=== PATIENT | female | born 1965 | race African-American/Black ===

== ENCOUNTER → 2018-03-13 07:44 | Outpatient (CLI) | payer BC, SELFPAY ==
[2018-03-13 12:03] LABS: Cholesterol 238 mg/dL (200); Estradiol < 11.0 pg/mL; Follicle Stimulating Hormone 108.2 mIU/mL; Glucose 82 mg/dL (74-106); High Density Lipoprotein 70 mg/dL; Luteinizing Hormone 44.8 mIU/mL; Thyroid Stim Hormone (TSH) 0.94 uIU/mL (0.358-3.74); Triglycerides 56 mg/dL; Very Low Density Lipoprotein 11 mg/dL (5-40)
== END ==
LOC: LAB.FUTURE 07:48
PROVIDERS: Family Provider Family Medicine; PCP Family Medicine; Visit Provider Obstetrics & Gynecology Gynecology
DX: N95.0 Postmenopausal bleeding (principal); Z13.1 Encounter for screening for diabetes mellitus; Z13.220 Encounter for screening for lipoid disorders
CPT/HCPCS: 36415; 80061; 82670; 82947; 83001; 83002; 84443

== ENCOUNTER 2024-05-30 08:59 | Emergency (ER) | payer BC, SELFPAY ==
[2024-05-30 09:00] VITALS: BP 163/76; PULSE 65; RESP 18; TEMP 36.3; O2SAT 100; BMI 31.8
--- NOTE | 2024-05-30 09:30 | EDS_ITS ---
HPI History of Present Illness Chief Complaint: Eye Problem Narrative Narrative: 58-year-old female presenting with left-sided flank pain. She states the onset was about 2 weeks ago. She states it is sharp in nature and radiates around the anterior part of the abdomen. She has not had significant nausea or vomiting. Denies diarrhea but states she does not have good bowel movements. No fevers or chills. Patient also states about a month ago she had a fleeting episode of something in her left eye where her vision was blurred. This is resolved. She states that this morning she woke up with redness in her left eye. She not sure how it got there. She went to urgent care and they were concerned that the flank pain was somehow connected to the left eye. Patient does have a mild headache. [facility] Medical History High cholesterol Anxiety Depression Home Medications ?Medication ?Instructions ?Recorded ?Last Taken ?Type No Known/Unobtainable [No Known 08/06/16 Unknown History Home Medications] Allergy/AdvReac Type Severity Reaction Status Date / Time codeine Allergy Hives Verified 08/06/16 09:06 Social History Smoking Status: Unknown if ever smoked ROS ROS ED Constitutional Constitutional ED: Denies chills, fever(s) or sweats Eyes Eyes: Reports other Details: Redness of left eye ; Denies blurry vision or change in vision ENT ENT ED: Denies ear pain or sore throat Cardiovascular Cardiovascular: Denies chest pain, palpitations or racing heartbeat Respiratory/Chest Respiratory/Chest: Denies cough, dyspnea or sputum Gastrointestinal Gastrointestinal: Reports abdominal pain and constipation; Denies diarrhea, nausea or vomiting Genitourinary Genitourinary ED: Denies dysuria, hematuria or urinary frequency Musculoskeletal Musculoskeletal: Denies arthralgias, myalgias or neck pain Integumentary Denies abscess, Abrasions or rash Neurologic Neurologic: Denies headache(s), paresthesias or weakness Psychiatric Psychiatric: Denies anxiety, depression, suicidal ideation or suicidal thoughts Endocrine Endocrinology: Denies polydipsia or polyuria EXAM Physical Exam Const Vital Signs: 05/30/24 09:00 Temperature 97.4 F L Temperature Source Temporal Pulse Rate 65 Respiratory Rate 18 Blood Pressure 163/76 H Blood Pressure Mean 105 Pulse Ox 100 Oxygen Delivery Method Room Air Positive well nourished General Appearance ED: CHRISTIANE GEORGE Narrative: Left-sided subconjunctival hemorrhage at 4 o'clock position of the left eye atraumatic and trauma Neck no lymphadenopathy Resp normal respiratory effort and clear to auscultation bilaterally Cardio regular rate and regular rhythm Back/Spine Back/Spine Narrative: Tenderness to palpation left flank under left ribs. Neuro oriented x3 and CN's II-XII intact bilaterally Sensorium / Orientation: alert Motor Exam: strength 5/5 throughout MDM MDM MDM Narrative Medical decision making narrative: Patient presenting with subconjunctival hemorrhage. There is nothing else acute as far as her eye is concerned. She is having left flank pain for a couple of weeks. She describes it as sharp and radiating. Patient presenting with right flank pain. Differential includes colitis, diverticulitis, constipation, UTI, pyelonephritis, renal calculi, ureteral calculi, bowel obstruction, malignancy, dehydration, electrolyte abnormalities. Patient was given Toradol and Zofran. CBC will be obtained to assess white blood cell count, hemoglobin, platelets. BMP to assess renal function, electrolytes, glucose. Urinalysis to assess for UTI. CBC shows normal white blood cell count, hemoglobin, platelets. BMP shows creatinine 1.05. No other comparisons. Urinalysis negative for infection but does show occult blood. Patient is medicated with Toradol and Zofran. She felt some relief but then her pain came back. She was given a dose of morphine [address] of the abdomen pelvis was obtained and shows moderate stool burden with no other acute findings. I counseled her on these findings and she will be MiraLAX for the next 3 days. I counseled her that her subconjunctival hemorrhage will heal on its own. Return precautions are discussed. Impression: 1. Left flank pain 2. Constipation 3. Subconjunctival hemorrhage Lab Data Attestation: I reviewed the patient's lab results. Discharge Plan Triage Chief Complaint: Eye Problem Other Complaint: Back Headache ED Provider: Brian eLos Dx/Rx/DC Orders Instructions: ED Constipation (Adult), ED Flank Pain, Uncertain Cause, ED Subconjunctival Hemorrhage Prescriptions: No Action No Known Home Medications Primary Care Provider: Haider Ramirez Referrals: Haider Ramirez MD [Primary Care Provider] - Print Language: Hungarian Disposition Disposition: Home, Self Care
[2024-05-30] MEDS: Ondansetron 4 MG/2 ML Vial IV (09:46)
[2024-05-30] MEDS: Ketorolac 15 MG/ML Vial IV (09:46)
[2024-05-30 09:54] LABS: Bacteria 0 SEEN /hpf (None Seen); Mucous, Urine 0 SEEN /hpf (<or=2+); Red Blood Cells-Urine 0 SEEN /hpf (0-5); White Blood Cells 0 SEEN /hpf (0-5)
[2024-05-30 09:55] LABS: Absolute Lymphocyte Count 1.87 X10^3/uL (0.83-4.51); Basophil# 0.04 X10^3/uL; Basophil% 0.7 % (0-1); Eosinophils% 1.8 % (0-5); Hematocrit 39.8 % (37-47); Hemoglobin 12.7 g/dL (12.0-15.0); Lymphocyte # 1.87 X10^3/ul (0.83-4.51); Lymphocyte % 34.1 % (19-41); Mean Corp Hgb Conc 31.9 g/dL (32-36); Mean Corpuscular Hgb 29.7 pg (27.0-32.0); Mean Platelet Vol. 10.4 fl (6.2-12.0); Monocyte# 0.51 X10^3/uL; Monocyte% 9.3 % (0-10); NRBC Flagged by Analyzer 0 % (0-5); Neutrophil # 2.95 X10^3/uL (2.7-7.7); Neutrophil % 53.7 % (47-70); Platelet Count 200 K/mm3 (150-450); RBC Distribution Width CV 13.2 % (11.6-14.6); RBC Distribution Width SD 44.8 fl (35.1-43.9); Red Blood Count 4.28 M/mm3 (4.2-5.4); White Blood Count 5.5 K/mm3 (4.4-11.0)
[2024-05-30 09:56] LABS: Color, Urine Yellow (Yellow); Glucose, Dipstick Normal (Normal); Ketone-Dipstick Negative (Negative); Leukocyte Esterase-Dipstick 25 /ul (Negative); Nitrite-Dipstick Negative (Negative); Occult Blood-Urine 10 /ul (Negative); Protein-Dipstick Negative (Negative); Specific Gravity, Urine 1.015 (1.002-1.030); Urine Bilirubin Dipstick Negative (Negative); Urine Clarity Clear (Clear); Urine Urobilinogen 1 mg/dl (Normal)
[2024-05-30 10:01] LABS: Squamous Epithelial Cells - UA 0-5 SEEN /hpf (5-10)
[2024-05-30 10:09] LABS: Anion Gap 2 (5-15); BUN 13 mg/dL (7-18); BUN/Creat Ratio 12.4 RATIO (10-20); Calcium,Total 9.3 mg/dL (8.5-10.1); Chloride 108 mmol/L (98-107); Creatinine, Serum 1.05 mg/dL (0.55-1.02); EST Glomerular Filtration Rate 57 mL/min (>60); Est Glom Filt Rate - Afr Amer 70 mL/min (>60); Estimated Creatinine Clearance 60.54 ml/min; Glucose 95 mg/dL (74-106); Potassium 3.9 mmol/L (3.5-5.1); Sodium Level 140 mmol/L (136-145)
--- NOTE | 2024-05-30 10:15 | CT_ITS ---
HISTORY: Flank pain. TECHNIQUE: Helically acquired images were obtained of the abdomen and pelvis without oral or IV contrast. A radiation dose optimization technique was used for this scan. 441 images. COMPARISON: None. FINDINGS: LOWER CHEST: Lung bases clear. BOWEL: Bowel nondilated. Appendectomy. Moderate stool in the colon. No focal pericolonic inflammatory change. PERITONEUM: No significant free fluid. LIVER/SPLEEN: Nonenlarged. GALLBLADDER/BILIARY TREE: Gallbladder present. PANCREAS/ADRENAL GLANDS: Unremarkable. KIDNEYS AND URETERS: 3.8 cm simple appearing left interpolar cyst. No nephrolithiasis or obstructing ureteral calculus. VESSELS: No abdominal aortic aneurysm. Mild atherosclerosis. PELVIC ORGANS: Unremarkable. BONES: Intact. CT/Abdomen/Pelvis without Cont IMPRESSION: Negative examination for renal stone. Moderate stool in the colon. Electronically Signed: Cynthia Rice MD at 12:19 EDT ,
[2024-05-30 11:00] VITALS: BP 159/85; PULSE 61; RESP 16; O2SAT 100
[2024-05-30] MEDS: Morphine 4 MG/ML Syringe IV (11:15)
[2024-05-30 12:38] VITALS: BP 150/78; PULSE 64; RESP 16; TEMP 36.3; O2SAT 100
== END 2024-05-30 12:39 | disposition home or self-care (01) ==
PROVIDERS: Emergency Provider Student in an Organized Health Care Education/Training Program; PCP Family Medicine; Visit Provider Student in an Organized Health Care Education/Training Program
DX: H11.32 Conjunctival hemorrhage, left eye (principal); R10.9 Unspecified abdominal pain; K59.00 Constipation, unspecified; E78.00 Pure hypercholesterolemia, unspecified; R51.9 Headache, unspecified
CPT/HCPCS: 74176; 80048; 81001; 85025; 96374; 96375; 99285; A4216; J2405